=== PATIENT | male | born 1990 | race Caucasian/White ===

== ENCOUNTER 2024-12-19 17:06 | Emergency (ER) | payer BC, SELFPAY ==
[2024-12-19 17:07] VITALS: BP 162/91; PULSE 88; RESP 18; TEMP 36.8; O2SAT 96
[2024-12-19 17:16] VITALS: PULSE 90; O2SAT 97
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
[2024-12-19 20:11] VITALS: BP 152/81; PULSE 89; RESP 18; TEMP 36.9; O2SAT 97
--- NOTE | 2024-12-19 20:11 | PC.NURSE ---
SPLINT APPLIED BY PROVIDER AT THIS TIME.
[2024-12-19] MEDS: HYDROcodone/APAP 5/325 TABLET 1 TAB PO (20:17)
== END 2024-12-19 20:26 | disposition home or self-care (01) ==
PROVIDERS: Emergency Provider Family Medicine
DX: S00.83XA Contusion of other part of head, initial encounter (principal); S13.4XXA Sprain of ligaments of cervical spine, initial encounter; S20.20XA Contusion of thorax, unspecified, initial encounter; S60.222A Contusion of left hand, initial encounter; V89.2XXA Person injured in unspecified motor-vehicle accident, traffic, initial encounter; Y92.410 Unspecified street and highway as the place of occurrence of the external cause
CPT/HCPCS: 70450; 70486; 71250; 72040; 73120; 74176; 99284; A9270